=== PATIENT | male | born 1940 | race Caucasian/White ===

== ENCOUNTER 2018-11-06 11:42 | Day surgery (SDC) | payer MEDICARE ==
[~2018-11-06] VITALS: Ht 170.2 cm; Wt 72.6 kg
[~2018-11-06 11:42] MED LIST: AMLO10 PO; ATOR20 PO; CHOL10002 PO; FURO80 PO; Gabapentin600 MG PO; HYDSUL200 PO; METO2.5 PO; METO50 PO; OMEG1CAP30 PO; POTCHL20ER PO; PRED1 PO; Terazosin HCl10 MG PO; VITAMIN B-121000 MCG PO; WARF5 PO; Zantac150 MG PO
--- NOTE | 2018-11-06 14:26 | NUR ---
11/06/[address] ROOM TO PERFORM BEDSIDE INJECTION APPROX 1311. SONOSITE UTILIZED, PT TOLERATED WELL, VSS THROUGHOUT. THIS NURSE TO ASSIST. INJECTION COMPLETED 1320.
== END 2018-11-06 14:43 | disposition home or self-care (01) ==
LOC: ORSCSDS 11:42
PROVIDERS: Orthopaedic Surgery
PROC: 01N50ZZ Release Median Nerve, Open Approach (ICD-10-PCS; principal; 2018-11-06 13:00)
DX: G56.01 Carpal tunnel syndrome, right upper limb (principal); I10 Essential (primary) hypertension; I48.91 Unspecified atrial fibrillation; G82.20 Paraplegia, unspecified; Z87.891 Personal history of nicotine dependence; I25.10 Atherosclerotic heart disease of native coronary artery without angina pectoris; E78.5 Hyperlipidemia, unspecified; E87.6 Hypokalemia; Z79.01 Long term (current) use of anticoagulants; Z79.899 Other long term (current) drug therapy
CPT/HCPCS: J0690; J2250; J3010; J7030